=== PATIENT | female | born 1975 | race Caucasian/White ===

== ENCOUNTER → 2024-05-30 07:40 | Outpatient (REF) | payer OTHER, SELFPAY | LOC: WDC 07:40 | PROVIDERS: ATTENDING PHYSICIAN Nurse Practitioner Adult Health; FAMILY PHYSICIAN Family Medicine | DX: Z12.31 Encounter for screening mammogram for malignant neoplasm of breast (principal) | CPT/HCPCS: 77063; 77067 ==

== ENCOUNTER → 2024-12-16 07:58 | Outpatient (REF) | payer OTHER, SELFPAY | LOC: WDC 07:58 | PROVIDERS: ATTENDING PHYSICIAN Nurse Practitioner Adult Health; FAMILY PHYSICIAN Family Medicine | DX: R92.2 Inconclusive mammogram (principal) | CPT/HCPCS: 76641 ==

== ENCOUNTER 2025-03-31 16:18 | Emergency (ER) | payer OTHER, SELFPAY ==
[2025-03-31 16:19] VITALS: BP 138/89
--- NOTE | 2025-03-31 19:33 | ED.GENMED ---
History of Present Illness
General
Chief Complaint: Headache
Time Seen by Provider: 03/31/25 19:04
History of Present Illness
History of Present Illness:
49-year-old female history of Graves' disease, celiac presenting with right-sided headache for the past 3 days. Patient states that headache was gradual in onset starting 3 days ago, intermittent comes and goes with no exacerbating or relieving
factors. Patient denies numbness, weakness, tingling, imbalance, or visual changes. Patient denies neck pain, fever or chills. Patient states that she has a nagging headache when she was going on vacation tomorrow and [place] next week so she
wanted to get checked out. Patient reports taking Tylenol and Motrin with minimal relief. Patient denies history of headaches. Patient denies any recent fall or head trauma. Patient denies any recent medication changes, changes in caffeine use,
or alcohol use.
Past History
Past History
ED Past Medical History: Hypothyroidism and Other (Patient has a history she noticed thyroiditis and celiac disease); Negative Asthma, HTN, Hypercholesterolemia or NIDDM
ED Past Surgical History: and Other (She has had right arm surgery for fracture of ulna and radius)
Social History
Tobacco: Former smoker
Alcohol: Occasional
Personal:
Living: with family
Employment: Employed
Phy Exam
Physical Exam
Physical Exam:
General: Alert, no acute distress. Well-appearing. Sitting on stretcher comfortably with lights on
Head: NCAT
Eyes: clear conjunctiva, PERRLA, EOMI
Neck: supple. No nuchal rigidity. Full range of motion of neck
Cardiac: regular rate and rhythm, no murmur
Lungs: clear to auscultation bilaterally. No wheezes, rales, or rhonchi. Speaking full unlabored sentences. No respiratory distress.
Abdomen: soft, nondistended nontender. No rebound or guarding.
MSK: no lower extremity edema bilaterally. No deformity
Skin: warm, dry
Neuro: Alert and oriented x3. Cranial nerves II through XII grossly intact with no focal deficits. 5-5 strength bilateral upper and lower extremities. Sensation intact throughout. No pronator drift. Normal finger-nose.
Course
Vital Signs
Initial and Last Documented VS:
Initial Vital Signs
Temp Pulse Resp BP Pulse Ox
97.8 F 72 16 138/89 100
03/31/25 16:19 03/31/25 16:19 03/31/25 16:19 03/31/25 16:19 03/31/25 16:19
Last Documented Vital Signs
Temp Pulse Resp BP Pulse Ox
97.8 F 72 16 138/89 100
03/31/25 16:19 03/31/25 16:19 03/31/25 16:19 03/31/25 16:19 03/31/25 19:37
MDM/Problems Addressed
Differential Diagnosis Includes:
Tension headache, migraine. Low suspicion for subarachnoid given headache has been intermittent ongoing for days, not sudden onset, not maximal intensity within 1 hour, neurologically intact
MDM/Problems Addressed:
49-year-old female presenting with right-sided headache described as pressure nonradiating nonexertional that started gradually 3 days ago. Patient states that headache has been intermittent for the past 3 days. Patient denies any neurological
symptoms. On exam, pt neurologically intact. No red flag signs/symptoms that warrant emergent imaging at this time. Likely tension headache. Advised take Tylenol/Motrin as needed. Stable for discharge home with PCP follow-up
*Pulse Oximetry
SaO2: 100
Oxygen Mode of Delivery: Room air
Patient hypoxic: no
*Critical Care Note
Total Time (30-74mins, 75-104mins- exclusive of procedures): Not Applicable
ED Attending Note
-
Portions of this chart may have been created with voice recognition software.� Occasional wrong word or��sound alike� substitutions may have occurred due to the inherent limitations of voice recognition software.
Discharge Plan
Departure
Patient Disposition: Home (Routine Discharge)
Date of Disposition: 03/31/25
Time of Disposition: 19:38
Patient with high blood pressure during this ER visit?: Yes
Discharge Problem:
Headache, tension type, episodic
Instructions: Headache, Adult (DC), BLOOD PRESSURE
Prescriptions:
No Action
levothyroxine [Synthroid] 88 MCG tablet
100 mcg PO DAILY
trazodone 50 MG tablet
50 mg PO HS
lifitegrast [Xiidra] 1 EACH dropperette
1 ea OP BID
Patient Comments:
each eye
Referrals:
Joe Ch Jr., DO [Family Provider, Internal Medicine]
Activity Restrictions/Additional Instructions:
Follow-up with primary care doctor in 2 to 3 days
Take Tylenol 975 mg every 6 hours and/or ibuprofen 800 mg every 8 hours with food as needed for pain
Return to the emergency department for numbness, weakness, tingling, visual changes, balance issues or new/worsening symptoms
Interventions
Interventions:
*Risk Screen - Suicide Last Done: 03/31/25 16:19
*General Assessment Last Done: 03/31/25 16:19
*Neglect/Abuse Screening Last Done: 03/31/25 19:47
*ED- Fall Risk Assessment Last Done: 03/31/25 19:47
*Nursing Disposition Last Done: 03/31/25 19:47
ED- Neurological Assessment Last Done: 03/31/25 19:10
Discharge Date and Time
Discharge Date/Time: 03/31/25 19:48
Print Language: YAKUT
== END 2025-03-31 19:48 | disposition home or self-care (01) ==
LOC: EMR 16:18
PROVIDERS: EMERGENCY PHYSICIAN Emergency Medicine; FAMILY PHYSICIAN Family Medicine
DX: G44.219 Episodic tension-type headache, not intractable (principal); R03.0 Elevated blood-pressure reading, without diagnosis of hypertension; E05.00 Thyrotoxicosis with diffuse goiter without thyrotoxic crisis or storm; E03.9 Hypothyroidism, unspecified; K90.0 Celiac disease; K86.81 Exocrine pancreatic insufficiency; Z87.891 Personal history of nicotine dependence
CPT/HCPCS: 99281

== ENCOUNTER → 2025-06-16 08:14 | Outpatient (REF) | payer OTHER, SELFPAY | LOC: WDC 08:14 | PROVIDERS: ATTENDING PHYSICIAN Nurse Practitioner Adult Health; FAMILY PHYSICIAN Family Medicine | DX: Z12.31 Encounter for screening mammogram for malignant neoplasm of breast (principal); Z80.3 Family history of malignant neoplasm of breast; R92.2 Inconclusive mammogram | CPT/HCPCS: 77063; 77067 ==